=== PATIENT | female | born 1990 | race Caucasian/White ===

== ENCOUNTER 2018-09-21 03:19 | Observation (INO) ==
[2018-09-21] MEDS ORDERED: ZOFRAN IV ONE (03:54)
[2018-09-21] MEDS ORDERED: TORADOL IV ONE (03:54)
[2018-09-21 04:33] LABS: BILIRUBIN URINE NEGATIVE (NEGATIVE); BLOOD URINE 1+ (NEGATIVE); CLARITY CLEAR (CLEAR); COLOR YELLOW; GLUCOSE URINE NEGATIVE (NEGATIVE); KETONE URINE TRACE mg/dL (NEGATIVE); LEUKOCYTES URINE TRACE (NEGATIVE); NITRITE URINE NEGATIVE (NEGATIVE); PH URINE 6.5; PROTEIN URINE TRACE mg/dL (NEGATIVE); SP GRAVITY URINE 1.015; UROBILINOGEN URINE NORMAL
[2018-09-21 04:34] LABS: URINE BACTERIA 1+ /HFP; URINE EPITHELIAL CELLS <10 /HPF (<10); URINE RBC <10 /HPF (<10); URINE SOURCE CLEAN CATCH; URINE WBC <10 /HPF (<10)
[2018-09-21 04:37] LABS: BASO# 0.01 X1000 (0.0-0.2); BASO% 0.1 % (0.0-0.8); EOS# 0.01 X1000 (0.0-0.7); EOS% 0.1 % (0.0-10.0); HEMATOCRIT 35.5 % (37.0-47.0); HEMOGLOBIN 11.9 g/dL (12.0-16.0); IMM GRAN# 0.03 X1000 (0.0-0.04); IMM GRAN% 0.2 % (0.0-0.5); LYMPH% 6.2 % (20.5-51.1); MCH 28.5 PG (27-31); MCHC 33.5 g/dL (33-37); MCV 84.9 FL (81-99); MONO# 1.56 X1000 (0.11-0.59); MONO% 9.7 % (1.7-9.3); MPV 10.6 FL (7.4-10.4); NEUT# 13.48 X1000 (1.4-6.5); NEUT% 83.7 % (42.2-75.2); PLT 240 X1000 (130-400); RBC 4.18 XMIL (4.2-5.4); RDW 12.5 % (11.5-14.5); WBC 16.09 X1000 (4.8-10.8)
[2018-09-21 04:50] LABS: AGAP 13; ALBUMIN 3.9 g/dL (3.5-5.0); ALKALINE PHOSPHATASE 52 U/L (32-104); AMYLASE 41 U/L (20-200); BUN 10 mg/dL (8-22); CHLORIDE 97 mmol/L (98-107); COSMO 271; CREATININE 0.5 mg/dL (0.5-0.9); ESTIMATED GFR > 60; GLUCOSE 136 mg/dL (70-104); GOT 14 U/L (10-30); GPT 15 U/L (10-36); LIPASE 19 U/L (13-60); POTASSIUM 3.8 mmol/L (3.5-5.1); SODIUM 135 mmol/L (136-145); TCO2 26 mmol/L (25-35); TOTAL PROTEIN 7.4 g/dL (6.3-8.3)
--- NOTE | 2018-09-21 05:09 | PROVIDER DOCUMENTATION ---
HPI-Abdominal Pain/GI Problem - General Chief Complaint: Abdominal Pain Stated Complaint: ABD PAIN Time Seen by Provider: 09/21/18 03:50 Source: patient Allergies/Adverse Reactions: Patient Allergies Allergy/AdvReac Type Severity Reaction Status Date / Time albuterol Allergy Unknown Verified 09/21/18 03:45 Home Medications: Home Medication List Medication Instructions Recorded Confirmed Last Taken Type Estradiol 2 mg PO DAILY 09/21/18 09/21/18 Unknown History Estradiol 4 mg PO QAM 09/21/18 09/21/18 Unknown History - History of Present Illness-ABD Nature of Presenting Problems: Patient is a 28 year old white female complaining of worsening 10/10 sharp RLQ abdomen and lower back pain since 12 noon yesterday with associated nausea and vomiting. Denies diarrhea. Last ate- 7:30pm yesterday. Abdominal Pain Onset Location: reports: RLQ Pain Radiation: reports: other (lower back) Quality of Pain: reports: sharp Severity in ED: reports: severe (initial pain) Onset/Duration: reports: 24 hours ago Timing: reports: still present, getting worse Activities at Onset: reports: none Exposure to sick contacts?: No Last BM: unsure Dark Stools Present?: reports: none noticed Rectal Bleeding: reports: none Review of Systems - Adult - REVIEW OF SYSTEMS - ADULT Constitutional: denies: chills, fever Eyes: reports: no symptoms reported Ears, Nose, Mouth & Throat: reports: no symptoms reported Cardiovascular: reports: no symptoms reported Respiratory: reports: no symptoms reported Gastrointestinal: reports: see HPI, abdominal pain, nausea, vomiting. denies: constipation, diarrhea Genitourinary: denies: dysuria Musculoskeletal: reports: no symptoms reported Integumentary: reports: no symptoms reported Neurological: reports: no symptoms reported Psychiatric: reports: no symptoms reported Endocrine: reports: no symptoms reported Hematologic/Lymphatic: reports: no symptoms reported Allergic/Immunologic: reports: no symptoms reported All Other Systems: Reviewed and Negative Past History - Adult - PAST MEDICAL HISTORY-ADULT Review of Records: reports: Old Records Reviewed, Nursing Assessment Review, Medications Reviewed, Social history reviewed & non-contributory. Major Childhood Illnesses: reports: denies history Cardiovascular: reports: denies history Respiratory: reports: denies history Gastrointestinal: reports: denies history Genitourinary: reports: denies history Musculoskeletal: reports: denies history Neurological: reports: denies history Psychiatric: reports: denies history Endocrine/Immune: reports: denies history - PRIOR SURGERIES/PROCEDURES Surgical/Procedure History: reports: other (diagnostic uterine procedure) - FAMILY HISTORY Family History: reviewed, not pertinent - SOCIAL HISTORY Smoking: denies Substance Use: none/never Living Situation: family Physical Exam-General - CONSTITUTIONAL General Appearance: moderate distress, other (in pain, 10/10 abdominal pain initially) - EYES Eyes: pink conjunctivae, other (clear) - HEAD, EARS, NOSE, MOUTH & THROAT HENMT: moist mucous membranes, normal ENT inspection - NECK Neck: non-tender, full range of motion, supple - RESPIRATORY Respiratory: chest non-tender, lungs clear - CARDIOVASCULAR Cardiovascular: regular rate, rhythm - GASTROINTESTINAL (ABDOMEN) Abdominal Exam: soft, no organomegaly, no pulsatile mass, tenderness (RLQ tenderness). negative: distended, guarding, rigid, rebound, mass - MUSCULOSKELETAL Back Exam: normal inspection, other (tender over lower back) Extremity: normal range of motion, non-tender, normal gait, normal inspection, no pedal edema, no calf tenderness Peripheral Pulses: radial (R): 2+, radial (L): 2+ - SKIN Integumentary: normal color, normal turgor - NEUROLOGIC Neurologic: grossly normal - PSYCHIATRIC Psych/Mental Status: normal thought process, oriented x 3, anxious Progress - PLAN OF CARE/RESULTS Progress/Plan/Lab Results: Vital Signs - 8 hr 09/21/18 03:39 Temperature 98.5 F Pulse Rate 87 Respiratory Rate 20 Blood Pressure 109/69 O2 Sat by Pulse Oximetry 99 Bedside Urine ED: Urine Bedside Start: 09/21/18 03:51 Freq: ORDERED Status: Active Protocol: Activity Type Activity Date Activity User E-Sign Co-Sign Detail Recorded Client Recorded Date Recorded By Document 09/21/18 04:06 [id number] 09/21/18 04:06 [id number] 09/21/18 04:06 Point of Care [Bedside Point of Care] -Lot # [id number] - Results Negative -Control Line Visible? Yes Laboratory Results - last 24 hr 09/21/18 09/21/18 09/21/18 04:05 04:20 04:20 WBC 16.09 H RBC 4.18 L Hgb 11.9 L Hct 35.5 L MCV 84.9 MCH 28.5 MCHC 33.5 RDW Std Deviation 12.5 Plt Count 240 MPV 10.6 H Immature Gran % (Auto) 0.2 Neut % (Auto) 83.7 H Lymph % (Auto) 6.2 L Mower % (Auto) 9.7 H Eos % (Auto) 0.1 Baso % (Auto) 0.1 Immature Gran # (Auto) 0.03 Neut # (Auto) 13.48 H Lymph # (Auto) 1.00 L Mower # (Auto) 1.56 H Eos # (Auto) 0.01 Baso # (Auto) 0.01 Sodium 135 L Potassium 3.8 Chloride 97 L Carbon Dioxide 26 Anion Gap 13 BUN 10 Creatinine 0.5 Estimated GFR/1.73 m2 > 60 BUN/Creatinine Ratio 20 Glucose 136 H Calculated Osmolality 271 Calcium 9.0 Total Bilirubin 1.20 H AST 14 ALT 15 Alkaline Phosphatase 52 Total Protein 7.4 Albumin 3.9 Globulin 4.0 Albumin/Globulin Ratio 1.0 Amylase 41 Lipase 19 Urine Source CLEAN CATCH Urine Color YELLOW Urine Clarity CLEAR Urine pH 6.5 Ur Specific [place] 1.015 Urine Protein TRACE A Urine Ketones TRACE Urine Blood 1+ A Urine Nitrite NEGATIVE Urine Bilirubin NEGATIVE Urine Urobilinogen NORMAL Urine Microscopic RBC <10 Urine WBC TRACE A Urine Microscopic WBC <10 Ur Epithelial Cells <10 Urine Bacteria 1+ Urine Glucose NEGATIVE Orders Category Date Time Status Saline Loc DIRECTED Care 09/21/18 03:50 Active Urine Preg [ED: Urine Bedside] ORDERED Care 09/21/18 03:51 Active NPO Diet 09/21/18 03:[address] ABD/PELVIS W/IV CONT ONLY [CT] Stat Exams 09/21/18 04:48 Ordered AMYLASE [CHEM] Stat Lab 09/21/18 04:20 Completed CBC WITH ELECTRONIC DIFF [HEME] Stat Lab 09/21/18 04:20 Completed COMPREHENSIVE METABOLIC PANEL [CHEM] Stat Lab 09/21/18 04:20 Completed LIPASE [CHEM] Stat Lab 09/21/18 04:[address] W/POSS RFLX CULT [URINALYSIS] Stat Lab 09/21/18 04:05 Completed URINE CULTURE [RM] Routine Lab 09/21/18 04:34 Ordered Ketorolac [Toradol] Med 09/21/18 03:54 Discontinued 30 mg IV NOW ONE Ondansetron [Zofran] Med 09/21/18 03:54 Discontinued 4 mg IV NOW ONE Result Diagrams: 09/21/18 04:20 09/21/18 04:20 - CT/MRI 1 CT Study: Abdomen, Pelvis CT Results: acute appendicitis, no perforation, no abscess - CONSULTS/PCP/HOSPITALIST Notification #1 *Consult/PCP/Hospitalist*: Dr. Varma, surgeon communications controller Time Discussed: 06:00 Reason/Comments: admit to [facility], start Zosyn Consult Disposition: Admit Departure - Departure Date of Disposition Decision: 09/21/18 Time of Disposition Decision: 06:21 DIAGNOSIS: Acute appendicitis Qualifiers: Acute appendicitis type: with localized peritonitis Appendicitis gangrene presence: without gangrene Appendicitis perforation presence: without perforation Appendicitis abscess presence: without abscess Qualified Code(s): K35.30 - Acute appendicitis with localized peritonitis, without perforation or gangrene Disposition: ADMITTED INPATIENT 09 Certified Medical Emergency: Emergent Condition: Stable Referrals and Follow-Ups: Amanda Yoon MD [Primary Care Provider] - - Critical Care Note This patient required my direct & personal management of CC.: No Attestation - Physician/ CANDICE Attestation Patient care was provided by Advanced Practice Provider:: No The physician spent face to face time with patient:: Yes Advanced Practice Provider documentation review:: Supervising physician onsite and consulted in the evaluation and care of this patient. The physician did have a face to face encounter with the patient.
[2018-09-21] MEDS ORDERED: ZOFRAN IV PRN (06:08)
[2018-09-21] MEDS ORDERED: NS 1,000 ML IV ONE (06:08)
[2018-09-21] MEDS ORDERED: ZOSYN 3.375 GM in NS 50 ML IV ONE (06:11)
[2018-09-21] MEDS: MORPHINE IV PRN ×2 (06:46→10:53)
--- NOTE | 2018-09-21 08:37 | HISTORY AND PHYSICAL ---
CHIEF COMPLAINT: Abdominal pain. HISTORY OF PRESENT ILLNESS: This is a 28-year-old female who presents with acute onset of severe right lower quadrant pain radiating into her back that started yesterday afternoon and is associated with nausea and vomiting. No diarrhea. No fever or chills. It is worsened with movement, lessened with IV morphine and Toradol in the ER. PAST MEDICAL HISTORY: Hypothyroidism, infertility. PAST SURGICAL HISTORY: Laparoscopy for infertility evaluation. HOME MEDICATIONS: Synthroid 175 mcg p.o. daily. ALLERGIES: Albuterol. FAMILY HISTORY: Reviewed and noncontributory. SOCIAL HISTORY: Negative for tobacco, alcohol, or illicit drug use. 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 REVIEW OF SYSTEMS: Ten systems reviewed and negative except as noted above. PHYSICAL EXAMINATION: VITAL SIGNS: Temperature 98, pulse 87, respirations 18, blood pressure 106/67. O2 saturation 99%. GENERAL: Well-developed, well-nourished female in no distress who looks her stated age. HEENT: Normocephalic, atraumatic. Extraocular muscles intact. Pupils equal, round, and reactive to light. Sclerae anicteric. Moist mucous membranes. Hearing grossly normal. No oral lesions. NECK: Supple. No thyromegaly. CARDIOVASCULAR: Regular rate and rhythm. RESPIRATORY: Bilateral equal breath sounds. No work of breathing. GASTROINTESTINAL: Soft, nondistended. No organomegaly or mass. No hernias. She is tender throughout, but focally in the right lower quadrant. No rebound or guarding. EXTREMITIES: No clubbing, cyanosis, or edema. SKIN: Warm and dry. No rash. MUSCULOSKELETAL: Moves all extremities equally and well. LABORATORY: White cell count 16,000. Hemoglobin 11.9, hematocrit 35, platelet count 240,000. Complete metabolic profile reviewed and unremarkable. Urinalysis unremarkable. Urine test negative. IMAGING: CT of the abdomen and pelvis was performed. I cannot see the images on our system, but by the ER physician report, it was positive for acute appendicitis without free air or abscess. ASSESSMENT AND PLAN: A 28-year-old female with acute appendicitis. We are planning laparoscopic appendectomy today. I discussed the risks, benefits, and alternatives, including bleeding, infection, injury to surrounding organs such as the bladder, bowel or ureter, incisional hernia, and other imponderables. She understands and agrees to proceed. cc: Justin Varma MD
--- NOTE | 2018-09-21 11:27 | Diag Imaging Result Doc PS360 ---
CT ABD/PELVIS W/IV CONT ONLY - 09/21/2018 INDICATION: abdominal pain,leukocytosis COMPARISON: None FINDINGS: The lung bases are clear and the heart size is normal. The liver, gallbladder, spleen, pancreas, adrenals, and kidneys are normal. The vermiform appendix is very dilated measuring over centimeter. There is some surrounding inflammatory stranding. No drainable fluid collections. No bowel obstruction or free air. Urinary bladder, uterus, and rectum are normal. Bony structures are intact. IMPRESSION: Early acute appendicitis. No evidence of complication. This report was discussed with Dr. Js Gorman on 09/21/2018 at 6:57 AM and was readback. This exam was performed using automated exposure control, adjustment of mA or kV according to patient size, and/or use of iterative reconstruction technique Electronically signed by Jovanni Parada 09/21/2018 11:24 AM
[2018-09-21] MEDS ORDERED: QUELICIN (DOSE) ONE (11:40)
[2018-09-21] MEDS ORDERED: DIPRIVAN 1% ONE (11:40)
[2018-09-21] MEDS ORDERED: ROBINUL ONE ×2 (11:41→12:21)
[2018-09-21] MEDS ORDERED: SENSORCAINE-MPF 0.5%/EPI 1:200,000 ONE (11:41)
[2018-09-21] MEDS ORDERED: LR 1,000 ML ONE (11:41)
[2018-09-21] MEDS ORDERED: XYLOCAINE-MPF 2% ONE (11:41)
[2018-09-21] MEDS ORDERED: ZEMURON ONE (11:44)
[2018-09-21] MEDS ORDERED: DECADRON ONE (12:21)
[2018-09-21] MEDS ORDERED: ZOFRAN ONE (12:21)
[2018-09-21] MEDS ORDERED: NEOSTIGMINE ONE (12:21)
[2018-09-21] MEDS ORDERED: FENTANYL ONE (12:27)
[2018-09-21] MEDS ORDERED: ZOSYN 3.375 GM in NS 50 ML IV SCH (13:00)
[2018-09-21] MEDS ORDERED: MORPHINE ONE (13:18)
[2018-09-21] MEDS: PHENERGAN ONE ×3 (13:25→13:34)
[2018-09-21] MEDS ORDERED: NORCO-10 PO PRN (13:56)
[2018-09-21 14:03] VITALS: BP 100/50
--- NOTE | 2018-09-21 17:02 | OPERATIVE NOTE ---
PROCEDURE DATE: 09/21/2018 PREOPERATIVE DIAGNOSIS: Acute appendicitis. POSTOPERATIVE DIAGNOSIS: Acute appendicitis. PROCEDURE: Laparoscopic appendectomy. SURGEON: Justin Varma MD. ANESTHESIA: General. ESTIMATED BLOOD LOSS: 10 mL. COMPLICATIONS: None apparent. SPECIMENS: Appendix. FINDINGS: The appendix was acutely inflamed. There might have been a small focal area of micro perforation of the wall, but no gross pus or stool was seen. TECHNIQUE: The patient was brought to the operating room and placed supine on the table. General anesthesia was induced. She was prepped and draped in usual sterile fashion. A Hernandez catheter was placed prior to prepping. I then anesthetized our incisions with 0.25% Marcaine. A 12 mm incision was made above the umbilicus. The fascia was exposed and incised sharply. Entry into the peritoneal cavity was obtained under direct vision with the OptiMegaBits device. Pneumoperitoneum was established. The camera was inserted. There was no evidence of injury to underlying structures. She was placed in Trendelenburg in left rotation. Two 5 mm incision ports were placed under direct vision in the left lower quadrant and suprapubic midline. The cecum and terminal ileum were identified, and the inflamed appendix was identified as well. It was adherent to the fallopian tube and sigmoid colon and pelvic brim, but it was easily mobilized off these structures bluntly. I then dissected a window through the mesentery at the base of the appendix with the [place] forceps and transected the base of the appendix with an Endo-ENIO stapler. The appendiceal mesentery was transected in the same fashion. The appendix was placed in an EndoCatch bag. I irrigated with saline. There were no signs of any bleeding or drainage from the staple lines. The bag and appendix were brought out through the umbilical port site. I irrigated into the pelvis and suctioned that out, and then closed the umbilical port site fascia under direct vision with the Devonte-Fabio device using a 0 Vicryl, and it was done in interrupted fashion x2. I then desufflated the abdomen and removed the ports. The skin was closed with a running 4-0 subcuticular Monocryl and Steri-Strips. There were no apparent complications. She was awakened in stable condition and transferred to the recovery room. cc: Justin Varma MD
== END 2018-09-21 18:28 | disposition home or self-care (01) ==
LOC: 4N 03:19 → P.ED 03:19
PROVIDERS: ADMIT Surgery; ATTEND Surgery
CPT/HCPCS: 74177; 80053; 81001; 81025; 82150; 83690; 85025; 86850; 86900; 86901; 87088; 88304; 96365; 96375; 99285; A9270; J0330; J1100; J1885; J2270; J2405; J2543; J2550; J3010; J7120